=== PATIENT | female | born 1965 | race Two or more races ===

== ENCOUNTER 2017-11-28 20:45 | Emergency (ER) | payer OTHER ==
[~2017-11-28] VITALS: Ht 167.6 cm; Wt 68.9 kg
[2017-11-28] MEDS ORDERED: Acetaminophen 500mg (ES) tab ORAL ONE (21:00)
--- NOTE | 2017-11-28 21:07 | Emergency Room Report ---
History of Present Illness General Chief Complaint: Multiple Trauma/Fall Source: Patient, Family Member Present Illness HPI Is a 52-year-old female with history of high blood pressure. She presents with chief complaint of head injury. She was working and slipped and fell on her butt and then backward hitting her head. This occurred just prior to arrival. No loss of consciousness. Minimal headache. No nausea no vomiting. Pain is 5 out of 10. Nothing made it better. Nothing made it worse. Denies any other complaint. Sent in by her employer to be checked out. Allergies: Coded Allergies: AMOXICILLIN (Verified Allergy, Unknown, 11/28/17) IBUPROFEN (Verified Allergy, Unknown, 11/28/17) Patient History Past Medical History: see triage record, old chart reviewed, HTN Past Surgical History: none Pertinent Family History: none Social History: Denies: smoking Now: No Immunizations: other Reviewed Nursing Documentation: PMH: Agreed; PSxH: Agreed Nursing Documentation-PMH Past Medical History: No History, Except For Review of Systems Eye: Denies: eye pain, blurred vision ENT: Denies: ear pain, nose congestion, throat swelling Respiratory: Denies: cough, shortness of breath Cardiovascular: Denies: chest pain, palpitations Gastrointestinal: Denies: abdominal pain, diarrhea, nausea, vomiting Musculoskeletal: Denies: back pain, joint pain Skin: Denies: rash Neurological: Denies: headache, numbness Endocrine: Denies: increased thirst, increased urine Hematologic/Lymphatic: Denies: easy bruising All Other Systems: negative except mentioned in HPI Physical Exam Vital Signs Date Time Temp Pulse Resp B/P (MAP) Pulse Ox O2 Delivery O2 Flow Rate FiO2 11/28/17 20:51 97.9 66 16 158/82 97 Room Air 97.9 vitals with high blood pressure Sp02 EP Interpretation: reviewed, normal General Appearance: well appearing, no apparent distress, alert Head: normocephalic, atraumatic Eyes: bilateral eye PERRL, bilateral eye EOMI ENT: hearing grossly normal, normal pharynx Neck: full range of motion, supple, no meningismus Respiratory: chest non-tender, lungs clear, normal breath sounds Cardiovascular #1: regular rate, rhythm, no murmur Gastrointestinal: normal bowel sounds, non tender, no mass, no organomegaly, no bruit, non-distended Musculoskeletal: back normal, gait/station normal, normal range of motion Psychiatric: mood/affect normal Skin: warm/dry Medical Decision Making Diagnostic Impression: Primary Impression: Head injury, acute Qualified Codes: S09.90XA - Unspecified injury of head, initial encounter ER Course Patient with head injury from a fall. No evidence of intracranial bleed or fracture. We'll discharge home. CT/MRI/US Diagnostic Results CT/MRI/US Diagnostic Results : Imaging Test Ordered: CT head Impression read by radiologist. Neg Last Vital Signs Date Time Temp Pulse Resp B/P (MAP) Pulse Ox O2 Delivery O2 Flow Rate FiO2 11/28/17 20:51 97.9 66 16 158/82 97 Room Air 97.9 Status: improved Disposition: HOME, SELF-CARE Condition: Stable Additional Instructions: Follow-up with your employer in one to 2 days as needed. Return if worse. Maxime Fritz MD Nov 28, 2017 21:07
[2017-11-28 21:11] VITALS: BP 142/66
[2017-11-28 21:25] VITALS: BP 142/66
--- NOTE | 2017-11-29 11:38 | Diagnostic Imaging Report ---
Indication: Headache. Head trauma Technique: Contiguous 5 mm thick transaxial imaging of the head obtained in a Siem[employer] Sensation [address] scanner. Soft tissue and bone windows generated. Automatic Exposure Control was utilized. Total Dose length Product (DLP): [address] Dose Index Volume (CTDIvol): 0.15, 70.38 mGy Comparison: none Findings: The size and configuration of the cortical sulci, basal cisterns, and ventricles are within normal limits for age. There is no mass effect, midline shift, or edema identified. There is no evidence of acute hemorrhage or abnormal intra-axial or extra-axial fluid collections. The bones and soft tissues are unremarkable. Mild mucosal thickening in the ethmoid sinus demonstrated. Previous partial ethmoidectomy noted. Impression: No mass effect, edema or acute bleed. Mild sinusitis and prior sinus surgery. [facility] has communicated the preliminary results to the Emergency Department. Their findings are largely concordant with this report. The CT scanner at [facility] is accredited by the [employer] and the scans are performed using dose optimization techniques as appropriate to a performed exam including Automatic Exposure control.
== END 2017-11-28 21:40 | disposition home or self-care (01) ==
LOC: EMR 21:34
DX: S09.90XA Unspecified injury of head, initial encounter (principal); W19.XXXA Unspecified fall, initial encounter; Y93.G1 Activity, food preparation and clean up; Y92.89 Other specified places as the place of occurrence of the external cause; Y99.0 Civilian activity done for income or pay; Z88.0 Allergy status to penicillin
CPT/HCPCS: 70450; 99284